=== PATIENT | female | born 2005 | race Caucasian/White ===

== ENCOUNTER 2024-06-24 11:41 | Observation (INO) ==
[2024-06-24] MEDS: SODIUM CHLORIDE 0.9% 1,000 ML IV ONE (12:15)
--- NOTE | 2024-06-24 12:20 | Emergency Department Note ---
Impression & Plan Acute appendicitis ED Provider Note HISTORY OF PRESENT ILLNESS: Patient is a 19-year-old female presenting with right lower quadrant abdominal pain. Patient reports that last night she developed pain in her right lower quadrant and was nauseous through most of the night. Denies any vomiting or diarrhea. Denies any history of abdominal surgeries. She went to [facility] today and was referred to the emergency department to rule out appendicitis given her symptoms. She denies any measured fevers, but reports she is subjectively feeling very warm. Denies any dysuria or hematuria. ROS: as above PHYSICAL EXAM: Constitutional: Patient appears in no acute distress. HENT: Head: Normocephalic and atraumatic. Eyes: EOMI, PERRL Mouth/Throat: Mucous membranes moist. Neck: Trachea midline. Neck supple. Cardiovascular: RRR, No murmurs, rubs or gallops. Intact distal pulses. Pulmonary/Chest: No respiratory distress. Breath sounds clear and equal bilaterally. No wheezes or rales. Abdominal: Abdomen soft, no rebound or guarding. RLQ TTP. On palpation of LLQ, patient has referred pain to RLQ Musculoskeletal: No edema, tenderness or deformity noted. Skin: Warm and dry. No rash, erythema, pallor or cyanosis Psychiatric: Appropriate mood and affect for situation. Neurological: Alert and keenly responsive. CN II-XII grossly intact, moving all extremities equally and fully. MDM: - Vitals signs showed tachycardia - History obtained via patient. History as above. - Chronic conditions affecting care: None - Differential diagnoses include, but are not limited to: Aortic aneurysm; appendicitis; diverticulitis; ectopic ; ovarian cyst; ovarian torsion; ureteral calculi - Order placed for continuous cardiac monitoring. At this time, monitor showed rate of 90 bpm with normal sinus rhythm, per my interpretation. - External medical records reviewed. - Laboratory workup interpreted by myself showed leukocytosis (WBC 12.95) with neutrophil predominance; stable electrolytes; normal lipase; negative hCG - UA negative for infection - CT abdomen/pelvis with IV contrast showed mild acute uncomplicated appendicitis. - Patient given 1L NS in ER. Given IV zosyn for antibiotic coverage. - Discussed case with surgeon final inspection supervisor, Dr. Aguilar, at 14:22. Surgery team will come evaluate patient. - Patient to be taken to OR with general surgery service for further evaluation and management. ASSESSMENT AND PLAN: Diagnosis: Acute appendicitis Plan: to OR Past Med/Surg History Problem List (Updated 06/24/24 @ 14:48 by Stephanie Marin MD) Acute appendicitis (Acute) Contact dermatitis Allergic conjunctivitis Chronic rhinitis Medical History Allergic conjunctivitis Chronic rhinitis Contact dermatitis Social History Smoking Status: Former smoker Tobacco Type: Cigarettes Preferred Language: Moldovan Feels Safe at Home: Yes Allergies Allergies Allergy/AdvReac Type Severity Reaction Status Date / Time almond Allergy Severe Tongue Unverified 06/24/24 14:05 itching apple Allergy Severe Tongue Unverified 06/24/24 14:05 itching wolff Allergy Severe Tongue Unverified 06/24/24 14:05 itching Penicillins Allergy Unknown Hives Unverified 06/24/24 14:05 Home Meds Home Medications Medication Instructions Recorded Confirmed cetirizine 10 mg tablet (Zyrtec) 10 mg PO DAILY PRN Allergy Symptoms 07/01/23 06/24/24 melatonin 10 mg capsule 10 mg PO HS PRN Sleep 07/01/23 06/24/24 olopatadine 0.2 % eye drops 1 drp ophthalmic (eye) DAILY 07/01/23 06/24/24 (Pataday Once Daily Relief) Previous Rx's Medication Instructions Recorded fluticasone propionate 50 2 spray intranasal DAILY #16 grams 07/01/23 mcg/actuation nasal spray,suspension Results & Data (ED) Vital Signs Vital Signs - 24 hr 06/24/24 11:51 06/24/24 11:58 06/24/24 12:43 Temperature 37.1 C Temperature Source Temporal Artery Scan Pulse Rate 96 H 78 Pulse Rate [Apical] Respiratory Rate 20 Respiratory Effort / Characteristics Non-Labored Respiratory Depth Normal Respiratory Pattern Blood Pressure 104/63 Blood Pressure [Right Arm] Blood Pressure Mean 76 Blood Pressure Mean [Right Arm] Pulse Oximetry 99 97 Oxygen Delivery Method Room Air Room Air Sepsis Recent Fever Within 48 Hours No Sepsis New/Unexplained Change in Mental Status No Sepsis Action Taken by Nursing No Action Required 06/24/24 14:44 Temperature Temperature Source Pulse Rate Pulse Rate [Apical] 90 Respiratory Rate 16 Respiratory Effort / Characteristics Non-Labored Spontaneous Respiratory Depth Normal Respiratory Pattern Regular Blood Pressure Blood Pressure [Right Arm] 115/61 Blood Pressure Mean Blood Pressure Mean [Right Arm] 79 Pulse Oximetry 100 Oxygen Delivery Method Room Air Sepsis Recent Fever Within 48 Hours Sepsis New/Unexplained Change in Mental Status Sepsis Action Taken by Nursing Laboratory Data 06/24/24 12:10 06/24/24 12:10 Lab Results 06/24/24 06/24/24 Range/Units 12:10 13:32 WBC 12.95 H (4.8-10.8) K/ul RBC 4.67 (4.20-5.40) M/uL Hgb 13.3 (12.0-16.0) g/dl Hct 38.5 (37.0-47.0) % MCV 82.4 (80.0-100.0) fL MCH 28.5 (25.0-34.0) pg MCHC 34.5 (32.0-36.0) g/dL RDW Std Deviation 37.2 (36.4-46.3) fL RDW Coeff of Gio 12.4 (11.5-14.5) % Plt Count 283 (130-400) K/uL MPV 8.8 L (9.4-12.4) fL Immature Gran % (Auto) 0.3 % Neut % (Auto) 81.7 % Lymph % (Auto) 12.2 % [place] % (Auto) 5.4 % Eos % (Auto) 0.2 % Baso % (Auto) 0.2 % Neut # (Auto) 10.58 H (1.40-6.50) K/uL Lymph # (Auto) 1.58 (1.20-3.40) K/uL [place] # (Auto) 0.70 H (0.11-0.59) K/uL Eos # (Auto) 0.02 (0.00-0.50) K/uL Baso # (Auto) 0.03 (0.00-0.20) K/uL Immature Gran # (Auto) 0.04 (0.01-0.20) K/uL Sodium 139 (136-145) mmol/L Potassium 3.6 (3.5-5.1) mmol/L Chloride 103 (98-107) mmol/L Carbon Dioxide 28 (21-32) mmol/L Anion Gap 8 (3-11) BUN 8 (6-23) mg/dl Creatinine 0.67 (0.6-1.2) mg/dl Est Cr Clr Drug Dosing 136.3 ml/min Est GFR ( Amer) 146.7 ml/min Est GFR (Non-Af Amer) 126.5 ml/min BUN/Creatinine Ratio 11.9 (10-20) Glucose 96 (70-99(Fasting)) mg/dl Calcium 9.6 (8.6-10.3) mg/dl Total Bilirubin 0.5 (0.2-1.0) mg/dl AST 17 (13-39) U/L ALT 14 (7-52) U/L Alkaline Phosphatase 60 (34-104) U/L Total Protein 8.1 (6.0-8.3) gm/dl Albumin 5.0 (3.4-5.0) gm/dl Globulin 3.1 (2.5-4.0) gm/dl Albumin/Globulin Ratio 1.6 (0.9-2) Lipase 15 (11-82) U/L HCG, Qual Negative (Negative) Urine Color Yellow Urine Appearance Clear (Clear) Urine pH 6.5 (4.5-7.5) Ur Specific [place] 1.013 (1.000-1.030) Urine Protein Negative (Negative) Urine Glucose (UA) Negative (Negative) Urine Ketones Negative (Negative) Urine Blood 3+ H (Negative) Urine Nitrite Negative (Negative) Urine Bilirubin Negative (Negative) Urine Urobilinogen Negative (Negative) Ur Leukocyte Esterase Trace H (Negative) Urine WBC (Auto) 0-5 (0-5) /hpf Urine RBC (Auto) 11-20 H (0-2) /hpf U Hyaline Cast (Auto) 0-2 (0-2) /lpf U Epithel Cells (Auto) 0-2 (0-2) /hpf Urine Bacteria (Auto) None Seen (None Seen) Administered Medications Piperacillin Sod/Tazobactam Sod (Zosyn) 4.5 gm in 100 mls @ 200 mls/hr IV NOW ONE Stop: 06/24/24 14:48 Last Admin: 06/24/24 14:44 Dose: 200 mls/hr Documented By: KASSANDRA Discontinued Medications Sodium Chloride (Nss) 1,000 mls @ 999 mls/hr IV .Q1H1M ONE Stop: 06/24/24 12:57 Last Infusion: 06/24/24 13:09 Dose: Infused Documented By: Admin: 06/24/24 12:15 Dose: 999 mls/hr Documented By: KASSANDRA Ioversol (Optiray 320 100ml) 94 ml IV ONCE ONE Stop: 06/24/24 13:21 Last Admin: 06/24/24 13:20 Dose: 94 ml Documented By: SHEN Imaging Data Radiologist's Impression: Abdomen/Pelvis CT 06/24/24 11:[address] WITH IV CONTRAST CT DOSE: 1268.89 mGy.cm HISTORY: Acute right lower quadrant abdominal pain RLQ abd pain TECHNIQUE: Multiaxial CT images of the abdomen and pelvis were performed following the IV administration of 94 cc of Optiray, A dose lowering technique was utilized adhering to the principles of ALARA. COMPARISON STUDY: None. FINDINGS: The lung bases are clear. The liver, gallbladder, pancreas, kidneys, and adrenal glands are within normal limits. The spleen measures 13.9 cm in length. There is no bowel obstruction. The appendix is hyperemic, dilated and inflamed measuring up to 9 mm. There is adjacent inflammatory stranding with trace ascites. Tampon noted within the vagina. Trace likely physiologic free pelvic fluid. Unremarkable uterus and adnexa. No suspicious lytic or blastic osseous lesions. IMPRESSION: 1. Mild acute uncomplicated appendicitis. 2. No bowel obstruction, pneumoperitoneum or abscess. ACT 112: Negative or not required by law. The above report was generated using voice recognition software. It may contain grammatical, syntax or spelling errors. Electronically signed by: Haider Amaya M.D. 06/24/2024 2:09 PM Discharge Plan Visit Data Chief Complaint: Referred by Doctor Stated Complaint: CT SCAN ED Provider: Stephanie Marin Discharge Problem: Acute appendicitis Forms Stand Alone Forms: [facility] Prescriptions Prescriptions: No Action cetirizine [Zyrtec] 10 mg tablet 10 mg PO DAILY PRN (Reason: Allergy Symptoms) melatonin 10 mg capsule 10 mg PO HS PRN (Reason: Sleep) olopatadine [Pataday Once Daily Relief] 0.2 % drops 1 drp ophthalmic (eye) DAILY fluticasone propionate 50 mcg/actuation spray,suspension 2 spray intranasal DAILY Qty: 16 11RF Rx Instructions: administer into each nostril Referrals Referrals: PCP,NO [Physician] -
[2024-06-24 12:26] LABS: Basophils # (auto) 0.03 K/uL (0.00-0.20); Basophils % (auto) 0.2 %; Eosinophils # (auto) 0.02 K/uL (0.00-0.50); Eosinophils % (auto) 0.2 %; Hematocrit (blood only) 38.5 % (37.0-47.0); Hemoglobin 13.3 g/dl (12.0-16.0); Immature Granulocytes # (auto) 0.04 K/uL (0.01-0.20); Immature Granulocytes % (auto) 0.3 %; Lymphocytes # (auto) 1.58 K/uL (1.20-3.40); Lymphocytes % (auto) 12.2 %; Mean Corpuscular Hemoglobin 28.5 pg (25.0-34.0); Mean Corpuscular Hgb Conc 34.5 g/dL (32.0-36.0); Mean Corpuscular Volume 82.4 fL (80.0-100.0); Mean Platelet Volume 8.8 fL (9.4-12.4); Monocytes % (auto) 5.4 %; Neutrophils # (auto) 10.58 K/uL (1.40-6.50); Neutrophils % (auto) 81.7 %; Platelet Count 283 K/uL (130-400); RDW Coefficient of Variation 12.4 % (11.5-14.5); RDW Standard Deviation 37.2 fL (36.4-46.3); Red Blood Count 4.67 M/uL (4.20-5.40); White Blood Count 12.95 K/ul (4.8-10.8)
[2024-06-24 12:38] LABS: Pregnancy Test, Serum Negative (Negative)
[2024-06-24 12:42] LABS: Albumin Globulin Ratio 1.6 (0.9-2); BUN Creatinine Ratio 11.9 (10-20); Bilirubin,Total 0.5 mg/dl (0.2-1.0); Calcium 9.6 mg/dl (8.6-10.3); Creatinine Clr Calc Pharmacy 136.3 ml/min; Est GFR (African American) 146.7 ml/min; Est GFR (Non-African American) 126.5 ml/min; Globulin 3.1 gm/dl (2.5-4.0); Potassium 3.6 mmol/L (3.5-5.1); Total Protein 8.1 gm/dl (6.0-8.3)
[2024-06-24] MEDS: OPTIRAY 320 100ml IV ONE (13:20)
[2024-06-24 13:49] LABS: Appearance Urine Clear (Clear); Bacteria Urine Automated None Seen (None Seen); Bilirubin Urine Negative (Negative); Blood Urine 3+ (Negative); Cast Urine Automated 0-2 /lpf (0-2); Color Urine Yellow; Epithelial Cell Urine Auto 0-2 /hpf (0-2); Glucose Urine UA Negative (Negative); Ketones Urine Negative (Negative); Leukocyte Esterase Urine Trace (Negative); Nitrite Urine Negative (Negative); Protein Urine Negative (Negative); Specific Gravity Urine 1.013 (1.000-1.030); Urobilinogen Urine Negative (Negative); WBC Urine Automated 0-5 /hpf (0-5); pH Urine 6.5 (4.5-7.5)
--- NOTE | 2024-06-24 14:10 | CT Scan Report ---
ABDOMEN AND PELVIS CT WITH IV CONTRAST CT DOSE: 1268.89 mGy.cm HISTORY: Acute right lower quadrant abdominal pain RLQ abd pain TECHNIQUE: Multiaxial CT images of the abdomen and pelvis were performed following the IV administrat ion of 94 cc of Optiray, A dose lowering technique was utilized adhering to the principles of ALARA. COMPARISON STUDY: None. FINDINGS: The lung bases are clear. The liver, gallbladder, pancreas, kidneys, and adrenal glands are within normal limits. The spleen measures 13.9 cm in length. There is no bowel obstruction. The appe ndix is hyperemic, dilated and inflamed measuring up to 9 mm. There is adjacent inflammatory strandin g with trace ascites. Tampon noted within the vagina. Trace likely physiologic free pelvic fluid. Unr emarkable uterus and adnexa. No suspicious lytic or blastic osseous lesions. IMPRESSION: 1. Mild acute uncomplicated appendicitis. 2. No bowel obstruction, pneumoperitoneum or abscess. ACT 112: Negative or not required by law. The above report was generated using voice recognition software. It may contain grammatical, syntax o r spelling errors. Electronically signed by: Haider Amaya M.D. 06/24/2024 2:09 PM
[2024-06-24] MEDS: PIPERACILLIN/TAZOBACTAM 4.5 GM/100 ML BAG IV ONE (14:44)
[2024-06-24] MEDS: ONDANSETRON INJ 2 MG/ML 2 ML VIAL IV STA (16:11)
--- NOTE | 2024-06-24 16:14 | History & Physical Report ---
Date of Service June 24, 2024 Assessment & Plan (1) Acute appendicitis: Plan 19 yo otherwise health female with early acute uncomplicated appendicitis. Discussed with patient indication for laparoscopic appendectomy, expected recovery and restrictions. Discussed procedure and risks and informed consent obtained. Will plan to proceed to operating room for laparoscopic appendectomy with Dr. Aguilar at earliest convenience. Keep NPO. IV Zosyn. Pain management Dr. Aguilar has seen and examined patient, see addendum for further recommendations/plan. History of Present Illness Chief Complaint: right sided abdominal pain Primary Care Provider: [facility] Taryn is a 19 yo female with history of contact dermatitis and chronic rhinitis who presented to ED from [facility] for right sided abdominal pain that woke her up at 1 am with associated chills, and nausea. No fevers, sweats, chest pain, shortness of breath, diarrhea, constipation, blood in stools, difficulty urinating or blood in urine. Never had this type of pain before. Currently has her menstrual cycle and has been having cramps but these are more in left lower abdomen. No prior abdominal surgeries. Er workup showed leukocytosis of 12k and ct scan of abdomen and pelvis with contrast showing dilated fluid filled appendix with periappendiceal stranding consistent with appendicitis. Allergies Allergy/AdvReac Type Severity Reaction Status Date / Time almond Allergy Severe Tongue Unverified 06/24/24 14:05 itching apple Allergy Severe Tongue Unverified 06/24/24 14:05 itching wolff Allergy Severe Tongue Unverified 06/24/24 14:05 itching Penicillins Allergy Unknown Hives Unverified 06/24/24 14:05 Home Medications Medication Instructions Recorded Confirmed Type cetirizine 10 mg tablet (Zyrtec) 10 mg PO DAILY PRN Allergy Symptoms 07/01/23 06/24/24 History fluticasone propionate 50 2 spray intranasal DAILY #16 grams 07/01/23 06/24/24 Rx mcg/actuation nasal spray,suspension melatonin 10 mg capsule 10 mg PO HS PRN Sleep 07/01/23 06/24/24 History olopatadine 0.2 % eye drops 1 drp ophthalmic (eye) DAILY 07/01/23 06/24/24 History (Pataday Once Daily Relief) Past Med/Surg History Problem List (Updated 06/24/24 @ 16:23 by Can Chapman MD) Contact dermatitis Allergic conjunctivitis Chronic rhinitis Medical History (Updated 06/24/24 @ 16:23 by Can Chapman MD) Encounter for pre-operative examination Acute appendicitis Social History Smoking Status: Former smoker Tobacco Type: Cigarettes Preferred Language: Welsh Feels Safe at Home: Yes Physical Exam Constitutional: WD/WN, vitals as above cooperative and comfortable; no acute distress and not ill appearing Respiratory: normal respiratory effort, lungs clear to auscultation Cardiovascular: RRR, no murmur, no edema Gastrointestinal (Abdomen): Inspection/Auscultation: abdomen normal to inspection; abdomen not distended Percussion/Palpation: + abdomen tender (RLQ, +Mcburneys point), + guarding (RLQ on deep palpation) and abdomen soft; abdomen not rigid and abdomen not firm Skin: no rashes, warm and dry Psychiatric: A+Ox3, euthymic affect Results & Data Results & Data Vital Signs (Past 12 Hours) Vital Signs Temp Pulse Pulse Resp BP BP Pulse Ox 06/24/24 15:04 102 H 14 127/78 100 06/24/24 14:44 90 16 115/61 100 06/24/24 12:43 78 06/24/24 11:58 97 06/24/24 11:51 37.1 C 96 H 20 104/63 99 O2 Del Method 06/24/24 15:04 Room Air 06/24/24 14:44 Room Air 06/24/24 12:43 06/24/24 11:58 Room Air 06/24/24 11:51 Room Air Laboratory Results 06/24/24 06/24/24 Range/Units 13:32 12:10 WBC 12.95 H (4.8-10.8) K/ul RBC 4.67 (4.20-5.40) M/uL Hgb 13.3 (12.0-16.0) g/dl Hct 38.5 (37.0-47.0) % MCV 82.4 (80.0-100.0) fL MCH 28.5 (25.0-34.0) pg MCHC 34.5 (32.0-36.0) g/dL RDW Std Deviation 37.2 (36.4-46.3) fL RDW Coeff of Gio 12.4 (11.5-14.5) % Plt Count 283 (130-400) K/uL MPV 8.8 L (9.4-12.4) fL Immature Gran % (Auto) 0.3 % Neut % (Auto) 81.7 % Lymph % (Auto) 12.2 % [place] % (Auto) 5.4 % Eos % (Auto) 0.2 % Baso % (Auto) 0.2 % Neut # (Auto) 10.58 H (1.40-6.50) K/uL Lymph # (Auto) 1.58 (1.20-3.40) K/uL [place] # (Auto) 0.70 H (0.11-0.59) K/uL Eos # (Auto) 0.02 (0.00-0.50) K/uL Baso # (Auto) 0.03 (0.00-0.20) K/uL Immature Gran # (Auto) 0.04 (0.01-0.20) K/uL Sodium 139 (136-145) mmol/L Potassium 3.6 (3.5-5.1) mmol/L Chloride 103 (98-107) mmol/L Carbon Dioxide 28 (21-32) mmol/L Anion Gap 8 (3-11) BUN 8 (6-23) mg/dl Creatinine 0.67 (0.6-1.2) mg/dl Est Cr Clr Drug Dosing 136.3 ml/min Est GFR ( Amer) 146.7 ml/min Est GFR (Non-Af Amer) 126.5 ml/min BUN/Creatinine Ratio 11.9 (10-20) Glucose 96 (70-99(Fasting)) mg/dl Calcium 9.6 (8.6-10.3) mg/dl Total Bilirubin 0.5 (0.2-1.0) mg/dl AST 17 (13-39) U/L ALT 14 (7-52) U/L Alkaline Phosphatase 60 (34-104) U/L Total Protein 8.1 (6.0-8.3) gm/dl Albumin 5.0 (3.4-5.0) gm/dl Globulin 3.1 (2.5-4.0) gm/dl Albumin/Globulin Ratio 1.6 (0.9-2) Lipase 15 (11-82) U/L HCG, Qual Negative (Negative) Urine Color Yellow Urine Appearance Clear (Clear) Urine pH 6.5 (4.5-7.5) Ur Specific [place] 1.013 (1.000-1.030) Urine Protein Negative (Negative) Urine Glucose (UA) Negative (Negative) Urine Ketones Negative (Negative) Urine Blood 3+ H (Negative) Urine Nitrite Negative (Negative) Urine Bilirubin Negative (Negative) Urine Urobilinogen Negative (Negative) Ur Leukocyte Esterase Trace H (Negative) Urine WBC (Auto) 0-5 (0-5) /hpf Urine RBC (Auto) 11-20 H (0-2) /hpf U Hyaline Cast (Auto) 0-2 (0-2) /lpf U Epithel Cells (Auto) 0-2 (0-2) /hpf Urine Bacteria (Auto) None Seen (None Seen) Diagnostic Findings ABDOMEN AND PELVIS CT WITH IV CONTRAST CT DOSE: 1268.89 mGy.cm HISTORY: Acute right lower quadrant abdominal pain RLQ abd pain TECHNIQUE: Multiaxial CT images of the abdomen and pelvis were performed following the IV administration of 94 cc of Optiray, A dose lowering technique was utilized adhering to the principles of ALARA. COMPARISON STUDY: None. FINDINGS: The lung bases are clear. The liver, gallbladder, pancreas, kidneys, and adrenal glands are within normal limits. The spleen measures 13.9 cm in length. There is no bowel obstruction. The appendix is hyperemic, dilated and inflamed measuring up to 9 mm. There is adjacent inflammatory stranding with trace ascites. Tampon noted within the vagina. Trace likely physiologic free pelvic fluid. Unremarkable uterus and adnexa. No suspicious lytic or blastic osseous lesions. IMPRESSION: 1. Mild acute uncomplicated appendicitis. 2. No bowel obstruction, pneumoperitoneum or abscess. Code Status & VTE Plan VTE Prophylaxis Plan VTE Prophylaxis will be ordered: Yes Supervising Physician Co-Signing Physician Notes I have seen and examined the patient and agree with the above assessment plan. In brief, this is a 19-year-old woman with early acute appendicitis. On physical exam she has right lower quadrant tenderness. White blood cell count 12, CT with acute appendicitis. We discussed the risks and benefits of laparoscopic appendectomy and consent has been obtained. Will take her to the operating room as soon as possible.
[2024-06-24] MEDS ORDERED: DEXAMETHASONE SOD INJ 4 MG/ML VIAL ONE (16:15)
[2024-06-24] MEDS ORDERED: LIDOCAINE 2% 2 ML VIAL/AMP(20MG/ML) INFIL ONE (16:15)
[2024-06-24] MEDS ORDERED: ONDANSETRON INJ 2 MG/ML 2 ML VIAL ONE (16:15)
[2024-06-24] MEDS ORDERED: MIDAZOLAM HCL 1 MG/ML 2ML VIAL ONE (16:15)
[2024-06-24] MEDS ORDERED: fentaNYL citrate PF 100 MCG/2 ML VIAL ONE ×2 (16:15→17:23)
[2024-06-24] MEDS ORDERED: PROPOFOL IV EMULSION 10 MG/ML 20 ML VIAL IV ONE (16:15)
[2024-06-24] MEDS ORDERED: KETOROLAC 30 MG/ML VIAL ONE (16:16)
[2024-06-24] MEDS ORDERED: ROCURONIUM BROMIDE 10 MG/ML 5 ML VIAL IV ONE ×5 (16:17)
[2024-06-24] MEDS ORDERED: SUCCINYLCHOLINE CHLORIDE 20 MG/ML 10 ML VIAL IV ONE (16:17)
[2024-06-24] MEDS ORDERED: ONDANSETRON INJ 2 MG/ML 2 ML VIAL IV PRN ×2 (16:21→20:37)
[2024-06-24] MEDS ORDERED: PROMETHAZINE HCL 6.25 MG in SODIUM CHLORIDE 0.9% 50 ML IV PRN (16:21)
[2024-06-24] MEDS ORDERED: ePHEDrine sulfate 50 MG/ML AMP IV PRN (16:21)
[2024-06-24] MEDS ORDERED: ATROPINE SULFATE 0.1 MG/ML 10ML SYR IV PRN (16:21)
--- NOTE | 2024-06-24 16:23 | Anesthesiology Consultation ---
Date of Service June 24, 2024 Assessment & Plan (1) Encounter for pre-operative examination: Chart Review Chart Review: Acceptable Risk for Surgery and Patient NOT seen in Pre Admission Testing Consults Requested none History Surgery Operation Date: 06/24/24 13:35 Proposed Procedures p Laparoscopic Appendectomy - Telly Aguilar MD Height/Weight Height: 5 ft 4 in Weight: 79.1 kg Allergies Allergy/AdvReac Type Severity Reaction Status Date / Time almond Allergy Severe Tongue Unverified 06/24/24 14:05 itching apple Allergy Severe Tongue Unverified 06/24/24 14:05 itching wolff Allergy Severe Tongue Unverified 06/24/24 14:05 itching Penicillins Allergy Unknown Hives Unverified 06/24/24 14:05 Medications Home Medications Medication Instructions Recorded Confirmed Last Taken cetirizine 10 mg tablet (Zyrtec) 10 mg PO DAILY PRN Allergy Symptoms 07/01/23 06/24/24 Unknown fluticasone propionate 50 2 spray intranasal DAILY #16 grams 07/01/23 06/24/24 06/23/24 mcg/actuation nasal spray,suspension melatonin 10 mg capsule 10 mg PO HS PRN Sleep 07/01/23 06/24/24 Unknown olopatadine 0.2 % eye drops 1 drp ophthalmic (eye) DAILY 07/01/23 06/24/24 06/23/24 (Pataday Once Daily Relief) Past Medical History Medical History (Updated 06/24/24 @ 16:23 by Can Chapman MD) Encounter for pre-operative examination Acute appendicitis Exercise / Class Metabolic Activity II 4-5 Yardwork/Stairs/Walk up hill Past Anesthesia History No Hx of Anesthesia Complications and No Family Hx of Anesthesia Complications Social History Smoking Status: Former smoker Physical Exam Vital Signs Last Vital Signs Temp 37.1 C 06/24/24 11:51 Pulse 75 06/24/24 16:10 Resp 18 06/24/24 16:10 BP 110/65 06/24/24 16:10 Pulse Ox 99 06/24/24 16:10 O2 Del Method Room Air 06/24/24 16:10 Testing Laboratory Results 06/24/24 12:10 06/24/24 12:10 Urine Color Yellow 06/24/24 13:32 Urine Appearance Clear (Clear) 09/04/24 13:32 Urine pH 6.5 (4.5-7.5) 06/24/24 13:32 Ur Specific [place] 1.013 (1.000-1.030) 06/24/24 13:32 Urine Protein Negative (Negative) 06/24/24 13:32 Urine Glucose (UA) Negative (Negative) 06/24/24 13:32 Urine Ketones Negative (Negative) 06/24/24 13:32 Urine Nitrite Negative (Negative) 06/24/24 13:32 Ur Leukocyte Esterase Trace (Negative) H 06/24/24 13:32 Urine WBC (Auto) 0-5 /hpf (0-5) 06/24/24 13:32 Urine RBC (Auto) 11-20 /hpf (0-2) H 06/24/24 13:32 U Hyaline Cast (Auto) 0-2 /lpf (0-2) 06/24/24 13:32 U Epithel Cells (Auto) 0-2 /hpf (0-2) 06/24/24 13:32 Urine Bacteria (Auto) None Seen (None Seen) 06/24/24 13:32
[2024-06-24] MEDS ORDERED: SUGAMMADEX SODIUM 200 MG/2 ML VIAL IV ONE (17:31)
[2024-06-24] MEDS: BUPIVACAINE/EPINEPHRINE 0.5% MPF 1:200,000 30 ML VIAL ONE (17:52)
--- NOTE | 2024-06-24 18:00 | Operative Report ---
Post Operative Report Pre & Post Diagnosis Operation Date: 06/24/24 13:35 Pre-Op Diagnosis: Abdominal pain Post-Op Diagnosis: Abdominal pain I identified the patient and participated in the time-out.: Yes Procedure Operation Date: 06/24/24 13:35 Actual Procedures p Laparoscopic Appendectomy(Not Applicable) - Telly Aguilar MD Surgeon Telly Aguilar MD Pillow Agent None Estimated Blood Loss 5 Findings Consistent with Post-Op Diagnosis acute appendicitis without perforation Specimens appendix Drains none Anesthesia Type General Complications none Description of Procedure the patient was taken to the operating room, and placed supine on the operating table. A timeout was performed, perioperative antibiotics were administered, SCD boots were placed. After adequate anesthesia and analgesia was obtained, the abdomen was prepped and draped in the normal sterile fashion. A 1 cm incision was made in the supraumbilical region and carried down to the level of the fascia. A trach hook was used to grasp the fascia and elevated and a varies needle was used to enter the abdominal cavity. The abdomen was insufflated to a pressure of 15 mmHg, and a 5 mm trocar was placed in this location. A 5 mm 30 degree laparoscope was placed into the abdominal cavity, and the abdomen was surveyed. The patient was placed in Trendelenburg and slightly to the left. One 5 mm trocar was placed in the right upper quadrant, and one 12 mm trocar was placed in the left lower quadrant under direct visualization. The right colon was identified and traced down to the cecum. The appendix was identified and sony vated anteriorly and medially. A window was created at the base of the appendix with a [place] dissector. The Endo MARY stapler was used to transect the appendix at its base through noninflamed tissue, and subsequently the mesoappendix. The appendix was placed in an Endo Catch bag, and removed via the left lower quadrant port site. Attention was turned to hemostasis, which was excellent. The abdomen was copiously irrigated and suctioned free, and again hemostasis was found to be excellent. All trochars removed under direct visualization. The abdomen was desufflated. The fascia in the 12 mm port site was closed with a 0 Vicryl suture. The skin was closed with a running 4-0 Monocryl subcuticular stitch. Dermabond was applied. The patient tolerated the procedure without complication, and was transferred in stable condition to the PACU. All instrument, needle, and sponge counts were correct at the end of the case. I attest to the content of the Intraoperative Record and any orders documented therein. Any exceptions are noted below.
[2024-06-24] MEDS: fentaNYL citrate PF 100 MCG/2 ML VIAL IV PRN (18:25)
--- NOTE | 2024-06-24 18:58 | Anesthesiology Progress Note ---
Date of Service June 24, 2024 Anesthesia Post Procedure Vital Signs Vital Signs: Temp Pulse Pulse Resp BP BP BP 06/24/24 18:45 79 17 118/71 06/24/24 18:30 37.2 C 82 16 121/66 06/24/24 18:20 78 16 122/70 06/24/24 18:10 85 16 126/69 06/24/24 18:04 36.8 C 99 H 16 120/75 06/24/24 16:30 37.2 C 87 18 112/85 06/24/24 16:10 75 18 110/65 06/24/24 15:04 102 H 14 127/78 06/24/24 14:44 90 16 115/61 06/24/24 12:43 78 06/24/24 11:58 06/24/24 11:51 37.1 C 96 H 20 104/63 Pulse Ox O2 Del Method O2 Flow Rate 06/24/24 18:45 98 Room Air 06/24/24 18:30 99 Room Air 06/24/24 18:20 99 Room Air 06/24/24 18:10 100 Room Air 06/24/24 18:04 100 Oxymask 4 06/24/24 16:30 100 Room Air 06/24/24 16:10 99 Room Air 06/24/24 15:04 100 Room Air 06/24/24 14:44 100 Room Air 06/24/24 12:43 06/24/24 11:58 97 Room Air 06/24/24 11:51 99 Room Air Pain Intensity Right Lower Abdomen: Pain Intensity: 5 Abdomen: Pain Intensity: 2 Transfer of Care Handoff Completed per policy Notes Mental Status: alert / awake / arousable and participated in evaluation Patient Amnestic to Procedure: Yes Nausea / Vomiting: adequately controlled Pain: adequately controlled Airway Patency, RR, SpO2: stable & adequate BP & HR: stable & adequate Hydration State: stable & adequate Anesthetic Complications: no major complications apparent and Pt Satisfied with anesthetic care
[2024-06-24] MEDS: HYDROmorphone INJ 1 MG/ML SYRINGE IV PRN (19:45)
[2024-06-24] MEDS ORDERED: PROMETHAZINE 12.5 MG/50.5 ML BAG IV PRN (20:37)
[2024-06-24] MEDS ORDERED: oxyCODONE/ACETAMINOPHEN 5mg/325mg TAB PO PRN (20:37)
[2024-06-24] MEDS ORDERED: MoRPHine SULFATE 2 MG/ML CARP IV PRN (20:37)
[2024-06-24] MEDS ORDERED: diphenhydrAMINE Capsule 25 MG CAP PO PRN (20:37)
[2024-06-25 03:23] VITALS: TEMP 97.9
[2024-06-25] MEDS: KETOROLAC 30 MG/ML VIAL IV PRN (05:36)
[2024-06-25 07:23] VITALS: BP 107/67; PULSE 71; RESP 16; O2SAT 98
--- NOTE | 2024-06-25 10:01 | Discharge Summary ---
Date of Service June 25, 2024 Admission HPI Per Admitting Provider Taryn is a 19 yo female with history of contact dermatitis and chronic rhinitis who presented to ED from [facility] for right sided abdominal pain that woke her up at 1 am with associated chills, and nausea. No fevers, sweats, chest pain, shortness of breath, diarrhea, constipation, blood in stools, difficulty urinating or blood in urine. Never had this type of pain before. Currently has her menstrual cycle and has been having cramps but these are more in left lower abdomen. No prior abdominal surgeries. Er workup showed leukocytosis of 12k and ct scan of abdomen and pelvis with cont rast showing dilated fluid filled appendix with periappendiceal stranding consistent with appendicitis. Principal Diagnosis acute appendicitis Discharge Exam Constitutional WD/WN, vitals as above cooperative and comfortable; no acute distress and not ill appearing Respiratory normal respiratory effort; no respiratory distress and no labored breathing Gastrointestinal (Abdomen) Inspection/Auscultation: abdomen normal to inspection, + abdominal surgical incision (c/d/i with dermabond) and + hypoactive bowel sounds; abdomen not distended Percussion/Palpation: + abdomen tender (mild at incision sites, appropriate postop) and abdomen soft; no guarding, abdomen not rigid and abdomen not firm Skin no rashes, warm and dry Psychiatric A+Ox3, euthymic affect Discharge Data Allergies Allergy/AdvReac Type Severity Reaction Status Date / Time almond Allergy Severe Tongue Unverified 06/24/24 14:05 itching apple Allergy Severe Tongue Unverified 06/24/24 14:05 itching wolff Allergy Severe Tongue Unverified 06/24/24 14:05 itching Penicillins Allergy Unknown Hives Unverified 06/24/24 14:05 Consultations 06/24/24 15:50 Consult General Surgery Routine Procedures Performed Operation Date: 06/24/24 13:35 Actual Procedures p Laparoscopic Appendectomy(Not Applicable) - Telly Aguilar MD Ordered Studies 06/24/24 11:58 CT abd pelvis IV con only Stat Hospital Course (1) Acute appendicitis: Plan Patient taken to operating room for laparoscopic appendectomy by Dr. Telly Aguilar on 06/24/2024. Patient found to have acute appendicitis without perforation or abscess. Patient tolerated procedure without difficulty and transferred to medical/surgical floor for postop care. Diet advanced as tolerated, activity as tolerated, pain management as needed. POD # 1 avss, postop pain minimal and controlled with IV Toradol, no n,v and tolerating diet. Patient was discharged home on POD # 1 in stable condition. Total Time Total Time Spent Total Time Spent (In Minutes): 20 Total Time Includes: Examination of the Patient, Discharge Planning and Medication Reconciliation Discharge Plan Discharge Items Patient Disposition: Home - Self-Care Reason For Visit: ACUTE APPENDICITIS Discharge Diagnosis: acute appendicitis Activity: Per Instructions section Non-emergency contact: Primary Care Provider and Surgeon Call non-emergency contact if: you have any medication questions, your pain is not controlled, your pain is worsening, your pain is concerning for you, you have a fever, your temperature is above 101, your wound has increased redness, your wound has increased drainage and your wound pain has increased Follow-up/Referrals: Stella Pacheco PA-C [Physician Table Games Manager] - PCP,NO [Physician] - Diet: Regular Addtl Attending Provider Instructions: Post-Surgical ~Discharge Instructions Activity Recommendations: - lifting limitation: (20 pounds for 2-3 weeks), - exercise/sex/sports limit: (nonstrenuous for 2 weeks), - driving or machine use limit: (none for 3 days to 1 week or until pain free, - Shower/bathe limit: (may shower beginning tonight, no submerging underwater (bathing, swimming, hot tubs) for 2 weeks) Diet: - Resume previous diet SPECIAL CARE INSTRUCTIONS: - May shower . Let water run over area and pat dry. - Leave surgical glue on incisions. This will fall off on its own. - Call the surgeon's office with any questions or concerns - - (ex. temperature higher than 101 degrees F, excessive bleeding or pain). MEDICATIONS: - Resume previous medications unless instructed otherwise by your surgeon. - May alternate extra strength Tylenol and Ibuprofen as needed for mild to moderate pain -650 mg Tylenol every 6 hours as needed - Ibuprofen 600 mg every 6 hours as needed take with food FOLLOW UP VISIT: - If not already scheduled, please call the office to schedule a two week follow-up appointment. Office number Pending Studies at Discharge: Yes (appendix pathology, will be reviewed at postop visit) Stand-Alone Forms: [employer], Work/School Release, Smoking Cessation Medications and DC Order Prescriptions: Continued cetirizine [Zyrtec] 10 mg tablet 10 mg PO DAILY PRN (Reason: Allergy Symptoms) melatonin 10 mg capsule 10 mg PO HS PRN (Reason: Sleep) olopatadine [Pataday Once Daily Relief] 0.2 % drops 1 drp ophthalmic (eye) DAILY fluticasone propionate 50 mcg/actuation spray,suspension 2 spray intranasal DAILY Qty: 16 11RF Rx Instructions: administer into each nostril Discharge Orders: Discharge Order (Routine); Ordered 06/25/24 Ordered By: Stella Pacheco Admission Data Admit Date/Time: 06/24/24 18:03 Attending Provider: Telly Aguilar Admit Provider: Telly Aguilar Primary Care Provider: [facility] Other Providers: Telly Aguilar
[2024-06-25] MEDS: ENOXAPARIN INJ 40 MG/0.4 ML SYR SQ SCH (10:18)
== END 2024-06-25 11:57 | disposition home or self-care (01) ==
LOC: ED 11:41 → 3N 16:10 → OR 16:10
DX: Z88.0 Allergy status to penicillin; Z87.891 Personal history of nicotine dependence; K35.200 Acute appendicitis with generalized peritonitis, without perforation or abscess; Z91.018 Allergy to other foods